=== PATIENT | male | born 1975 | race African-American/Black ===

== ENCOUNTER → 2019-08-02 | Outpatient (CLI) | payer MEDICAID ==
[2019-08-02 13:39] LABS: ALBUMIN 4.4 g/dL (3.5-5.0); ALKALINE PHOSPHATASE 71 U/L (38-126); ANION GAP 8 (5-19); ASPARTATE AMINO TRANSFERASE 29 U/L (17-59); BLOOD UREA NITROGEN 19 mg/dL (7-20); CALCIUM 9.6 mg/dL (8.4-10.2); CARBON DIOXIDE 20 mmol/L (22-30); CHLORIDE 110 mmol/L (98-107); CHOLESTEROL 133.55 mg/dL (0-200); GLUCOSE 129 mg/dL (75-110); POTASSIUM 4.6 mmol/L (3.6-5.0); TOTAL PROTEIN 7.3 g/dL (6.3-8.2); TRIGLYCERIDES 108 mg/dL (<150)
[2019-08-02 13:44] LABS: BILIRUBIN,TOTAL 0.7 mg/dL (0.2-1.3)
[2019-08-02 13:50] LABS: DIRECT LDL 80 mg/dL (<100)
[2019-08-02 13:53] LABS: BILIRUBIN,DIRECT 0.1 mg/dL (0.0-0.4)
== END ==
LOC: OD 12:03
PROVIDERS: ATTEND Physician Assistant
DX: E78.00 Pure hypercholesterolemia, unspecified (principal); I10 Essential (primary) hypertension; Z79.899 Other long term (current) drug therapy
CPT/HCPCS: 36415; 80048; 80061; 80076